=== PATIENT | male | born 1945 | race Caucasian/White ===

== ENCOUNTER 2019-08-22 14:58 | Emergency (ER) | payer OTHER ==
[~2019-08-22] VITALS: Ht 172.7 cm; Wt 74.8 kg
[2019-08-22] MEDS ORDERED: LISINOPRIL2.5 MG PO (15:06)
[2019-08-22 15:22] LABS: ABSOLUTE EOSINOPHILS 0.2 thou/uL (0.0-0.7); ABSOLUTE MONOCYTES 0.2 thou/uL (0.0-1.2); ABSOLUTE NEUTROPHILS 4.5 thou/uL (1.6-8.1); BASOPHILS 0.3 %; EOSINOPHILS 2.6 %; HEMATOCRIT 43.6 % (42.0-52.0); HEMOGLOBIN 15.3 gm/dL (14.0-18.0); LYMPHOCYTES 17.6 %; MCH 33.3 pg (26.0-34.0); MCV 95.1 fL (80.0-100.0); MONOCYTES 4.1 %; MPV 7.3 fl. (7.2-11.1); NUCLEATED RBCS 0 /100WBC; PLATELET COUNT* 162 thou/uL (150-400); POLYS 75.4 %; RBC 4.59 mil/uL (4.50-6.00); RDW-CV 13.1 % (10.5-14.5); WBC 5.9 thou/uL (4.0-11.0)
[2019-08-22 15:30] LABS: CALCIUM 8.3 mg/dL (8.5-10.1); POTASSIUM 3.7 mmol/L (3.5-5.1)
[2019-08-22 15:33] LABS: PROTIME 10.4 Seconds (9.20-11.50)
[2019-08-22] MEDS ORDERED: PROBIOTIC1 EAC7 PO (15:37)
[2019-08-22] MEDS ORDERED: COZAAR 25 MG TA25 M1 PO (15:37)
[2019-08-22] MEDS ORDERED: ENTOCORT EC 3 MG3 MG PO (15:38)
[2019-08-22] MEDS ORDERED: PANTOPRAZOLE SO40 M1 PO (15:38)
[2019-08-22] MEDS ORDERED: LIPITOR 20 MG T20 M1 PO (15:38)
[2019-08-22 15:41] LABS: ALBUMIN 3.4 g/dL (3.4-5.0); TOTAL BILIRUBIN 0.3 mg/dL (<0.1-1.0); TOTAL PROTEIN 6.4 g/dL (6.4-8.2)
[2019-08-22] MEDS ORDERED: PREDNISONE50 MG PO (17:12)
[2019-08-22] MEDS ORDERED: NORVASC5 M1 PO (17:12)
[2019-08-22] MEDS ORDERED: EPIPEN0.3 MG/0.1 IM (17:12)
[2019-08-22 17:49] VITALS: BP 141/76
--- NOTE | 2019-08-23 14:10 | EKG ---
[place] [address] ELECTROCARDIOGRAM REPORT Name: YOVANI RICO Room: [facility]#: [id number] Admission: 08/22/19 Attend Phys: Discharge: 08/22/19 Date of : 43 Date of Service: 08/22/19 1459 Report #: [id number] THIS REPORT FOR: //name// [facility] ED Test Date: 2019-08-22 Test Time: 14:59:21 Pat Name: YOVANI RICO Department: Room: Gender: President + Publisher: [place] : 1945 Requested By: Dyana Cabrales Order Number: [id number] MD: Samir Pham Measurements Intervals [place] Rate: 56 P: 41 PA: 189 QRS: -5 QRSD: 103 T: 55 QT: 446 QTc: 431 Interpretive Statements Sinus bradycardia Low voltage, extremity leads Baseline wander in lead(s) V3,V4,V5 No previous ECG available for comparison Electronically Signed On 08-23-2019 14:08:43 CDT by Samir Pham [email or web address] <ELECTRONICALLY SIGNED> By: Samir Pham MD, [facility] 08/23/19 1408 1459 1459 Samir Pham MD, [facility] /EPI
== END 2019-08-22 17:49 | disposition home or self-care (01) ==
LOC: M.ERS 14:58
PROVIDERS: Personal Emergency Response Attendant
DX: T78.1XXA Other adverse food reactions, not elsewhere classified, initial encounter (principal); R07.89 Other chest pain; I10 Essential (primary) hypertension; F17.210 Nicotine dependence, cigarettes, uncomplicated; X58.XXXA Exposure to other specified factors, initial encounter